=== PATIENT | female | born 1995 | race Caucasian/White ===

== ENCOUNTER → 2019-10-21 | Outpatient (CLI) | payer BC ==
--- NOTE | 2019-10-21 15:45 | Diagnostic Imaging Report ---
TECHNIQUE: Magnetic resonance imaging of the LEFT SHOULDER was performed WITHOUT injected contrast. COMPARISON: None available. HISTORY: Left shoulder pain FINDINGS: MUSCLES AND TENDONS: Rotator Cuff: Tendons: Supraspinatus: Intact Infraspinatus: Intact Teres Minor: Intact Subscapularis: Intact Muscles: No focal muscle atrophy. Biceps Tendon: The long head of the biceps tendon is intact and within the intertubercular groove. GLENOHUMERAL JOINT: Glenoid Labrum: No displaced tear. Articular Cartilage: No focal defect. AC JOINT AND ACROMION: No hypertrophic degenerative changes of the acromioclavicular joint. The acromion is unremarkable. BONE: Red marrow reconversion with mild appendiceal sparing. No acute fracture. SOFT TISSUES: Otherwise, the soft tissues appear unremarkable. IMPRESSION: Intact rotator cuff and labrum Severe red marrow reconversion, less likely replacement. Recommend hematologic evaluation. Signed by: Dr. Ricki Snell M.D. on 10/21/2019 3:42 PM
--- NOTE | 2019-10-21 15:56 | Diagnostic Imaging Report ---
Examination: MRI SPINE CERVICAL WO CONTRAST History: Neck pain that radiates to the left arm and fingertips. Comparison studies: None Technique: Sagittal T1, T2 and IR, axial T2 and axial gradient echo intravenous contrast: None Findings: Alignment: Straightening of normal lordosis. No scoliosis. Cervicomedullary junction: No abnormalities. Patent foramen magnum. Soft tissues: No T2 hyperintense inflammatory changes. Spinal cord: Normal in size and signal from the foramen magnum through T1. Vertebrae: No fractures, infection or neoplasm. Degenerative changes: C1-C2: No abnormalities. C2-C3: No abnormalities. C3-C4: Mild bilateral uncovertebral arthropathy. No canal or foraminal stenosis. C4-C5: Mild bilateral uncovertebral arthropathy results in mild left neural foraminal narrowing. No right foraminal or canal stenosis. C5-C6: Mild bilateral uncovertebral arthropathy results in mild left neural foraminal narrowing. No right foraminal or canal stenosis. C6-C7: Mild bilateral uncovertebral arthropathy results in mild right neural foraminal narrowing. No left foraminal or canal stenosis. C7-T1: No abnormalities. IMPRESSION: 1. Mild degenerative changes at C3-C4 through C6-C7 without significant foraminal (not moderate or severe) stenosis. 2. No disc herniation or bulge or canal stenosis. Signed by: Dr. Maggie Martines M.D. on 10/21/2019 3:53 PM
== END ==
LOC: MRI 13:59
PROVIDERS: ATTEND Specialist
DX: S13.4XXA Sprain of ligaments of cervical spine, initial encounter (principal); S46.012A Strain of muscle(s) and tendon(s) of the rotator cuff of left shoulder, initial encounter
CPT/HCPCS: 72141; 81025